=== PATIENT | male | born 1970 | race Two or more races ===

== ENCOUNTER 2025-01-29 17:17 | Inpatient (IN) | payer OTHER ==
[~2025-01-29] VITALS: Ht 182.9 cm; Wt 83.9 kg
[2025-01-29] MEDS ORDERED: NEURONTIN800 MG (17:35)
[2025-01-29] MEDS ORDERED: JANUMET 50-1,01 EACH (17:35)
[2025-01-29] MEDS ORDERED: 0.9 % SODIUM CHLORIDE 1,000 ML IV SCH ×2 (18:15→20:00)
[2025-01-29 18:47] LABS: LYMPH # 1.14 (1.18-3.74); LYMPH % 59.1 % (19.3-53.1); MEAN CORPUSCULAR HEMOGLOBIN 36.4 pg (25.6-32.2); MONO # 0.68 (0.24-0.82); NEUT # 0.08 (1.56-6.13); NEUT % 4.1 % (34.0-71.1); RED BLOOD COUNT 2.25 M/uL (4.63-6.08); RED CELL DISTRIBUTION WIDTH 15.8 % (11.6-14.4)
[2025-01-29 18:57] LABS: HEMATOCRIT 23.2 % (40.1-51.0); HEMOGLOBIN 8.2 g/dL (13.7-17.5); INR 1.1; MONO % 35.2 % (4.7-12.5); PARTIAL THROMBOPLASTIN TIME 30.4 SECONDS (22.0-34.0); PLATELET COUNT 22 K/uL (163-369); PROTHROMBIN TIME 11.9 SECONDS (9.0-11.5)
[2025-01-29 19:01] LABS: ALBUMIN 2.5 gm/dL (3.4-5.0); BILIRUBIN TOTAL 1.4 mg/dL (0.3-1.2); CALCIUM 8.4 mg/dL (8.5-10.1); CREATININE SERUM 0.73 mg/dL (0.70-1.30); GFR 112.83; GLOBULINA 4.2 G/DL (2.4-3.5); TOTAL PROTEIN 6.7 gm/dL (6.4-8.2)
[2025-01-29 19:04] LABS: POTASSIUM 2.66 mEq/L (3.5-5.1)
[2025-01-29 19:11] LABS: COVID-19 AG NEGATIVE (NEGATIVE)
[2025-01-29 19:12] LABS: INFLUENZA A AG NEGATIVE (NEGATIVE); INFLUENZA B AG NEGATIVE (NEGATIVE)
[2025-01-29] MEDS ORDERED: POTASSIUM CHLORIDE IN 0.9%NACL 1,000 ML IV NR (19:15)
[2025-01-29] MEDS ORDERED: PANTOPRAZOLE SODIUM 40 MG/VIAL VIAL IV SCH (20:02)
[2025-01-29] MEDS ORDERED: CEFEPIME HCL 1,000 MG in 0.9 % SODIUM CHLORIDE 50 ML IV ONE (20:15)
[2025-01-29] MEDS ORDERED: ONDANSETRON HCL 4 MG in 0.9 % SODIUM CHLORIDE 50 ML IV PRN (20:15)
[2025-01-29] MEDS ORDERED: INSULIN LISPRO 1,000 UNIT/10 ML UNITS SUBCUTANEO PRN (20:15)
[2025-01-29] MEDS ORDERED: ACETAMINOPHEN 500 MG GEL..CAP PO PRN (20:15)
[2025-01-29] MEDS ORDERED: DEXTROSE 50 % IN WATER 0.5 G/ML VIAL IV PRN (20:15)
[2025-01-29] MEDS ORDERED: POTASSIUM CHLORIDE IN WATER 100 ML IV SCH (21:00)
[2025-01-29] MEDS ORDERED: CEFEPIME HCL 1,000 MG in 0.9 % SODIUM CHLORIDE 50 ML IV SCH (21:00)
[2025-01-30] MEDS ORDERED: CEFEPIME HCL 2,000 MG in 0.9 % SODIUM CHLORIDE 100 ML IV SCH (01:00)
[2025-01-30 03:46] VITALS: BP 114/62; O2SAT 98
[2025-01-30 03:50] VITALS: BP 116/71; O2SAT 100
[2025-01-30 04:03] LABS: PH,URINE 7.5 (5.0-8.0); URINE APPEARANCE Clear; URINE BILIRRUBIN Negative (NEGATIVE); URINE BLOOD Negative; URINE COLOR Yellow; URINE KETONE 15 (NEGATIVE); URINE LEUKOCYTE Negative; URINE NITRATE Negative; URINE PROTEIN Negative (NEGATIVE)
[2025-01-30 04:06] LABS: URINE BACTERIA 6.1 uL (0.0-1933); URINE EPITHELIAL CELLS 2.1 uL (0.0-38.8)
[2025-01-30 04:16] LABS: MAGNESIUM 1.8 mg/dL (1.8-2.4)
[2025-01-30 04:57] LABS: C-REACTIVE PROTEIN 9.87 MG/DL (0.00-0.29)
[2025-01-30 04:58] LABS: PHOSPHOROUS 1.5 mg/dL (2.5-4.9)
[2025-01-30 06:20] LABS: URINE GLUCOSE >=1000 MG/DL (NEGATIVE); URINE WBC 0.6 uL (0.0-23.2)
[2025-01-30 09:02] VITALS: BP 105/64; O2SAT 97
[2025-01-30] MEDS ORDERED: INSULIN GLARGINE,HUM.REC.ANLOG 1,000 UNITS/10 ML UNITS SUBCUTANEO STA (12:00)
[2025-01-30] MEDS ORDERED: POTASSIUM PHOS,M-BASIC-D-BASIC 18 MM in 0.9 % SODIUM CHLORIDE 250 ML IV NR (12:00)
[2025-01-30] MEDS ORDERED: VANCOMYCIN HCL 5 MG/ML REDILUIDO IV STA (12:41)
[2025-01-30] MEDS ORDERED: DEXTROSE 50 % IN WATER 0.5 G/ML VIAL IV PRN (12:45)
[2025-01-30] MEDS ORDERED: INSULIN LISPRO 1,000 UNIT/10 ML UNITS SUBCUTANEO PRN (12:45)
[2025-01-30 14:00] VITALS: BP 105/70; O2SAT 100
[2025-01-30] MEDS ORDERED: POTASSIUM CHLORIDE IN WATER 100 ML IV SCH (17:00)
[2025-01-30] MEDS ORDERED: LACTOBACILLUS ACIDOPHILUS 1 CAP CAP PO SCH (17:00)
[2025-01-31 00:32] VITALS: BP 115/68; O2SAT 98
[2025-01-31] MEDS ORDERED: VANCOMYCIN HCL 5 MG/ML REDILUIDO IV SCH (05:00)
[2025-01-31 08:00] VITALS: BP 103/66; O2SAT 95
[2025-01-31] MEDS ORDERED: INSULIN GLARGINE,HUM.REC.ANLOG 1,000 UNITS/10 ML UNITS SUBCUTANEO SCH (09:00)
[2025-01-31 16:38] VITALS: BP 110/62; O2SAT 99
[2025-01-31 20:07] LABS: BASO % 0.6 % (0.1-1.2); EOS # 0.02 (0.04-0.54); EOS % 0.6 % (0.7-7.0); LYMPH % 44.2 % (19.3-53.1); MEAN CORPUSCULAR HEMOGLOBIN 36.1 pg (25.6-32.2); MONO # 0.67 (0.24-0.82); NEUT # 0.83 (1.56-6.13); NEUT % 26.2 % (34.0-71.1); RED BLOOD COUNT 2.38 M/uL (4.63-6.08); RED CELL DISTRIBUTION WIDTH 17.5 % (11.6-14.4)
[2025-01-31 20:41] LABS: HEMATOCRIT 24.6 % (40.1-51.0); HEMOGLOBIN 8.6 g/dL (13.7-17.5); MONO % 21.1 % (4.7-12.5); PLATELET COUNT 52 K/uL (163-369)
[2025-02-01 00:35] VITALS: BP 102/66; O2SAT 99
[2025-02-01 08:00] VITALS: BP 112/70; O2SAT 99
[2025-02-01] MEDS ORDERED: INSULIN LISPRO 1,000 UNIT/10 ML UNITS SUBCUTANEO SCH (08:00)
[2025-02-01] MEDS ORDERED: INSULIN GLARGINE,HUM.REC.ANLOG 1,000 UNITS/10 ML UNITS SUBCUTANEO SCH (09:00)
[2025-02-01 16:06] VITALS: BP 99/65; O2SAT 97
[2025-02-01] MEDS ORDERED: SOD FERRIC GLUC COMPLX/SUCROSE 62.5 MG/5 ML AMPUL IV STA (18:22)
[2025-02-02 00:51] VITALS: BP 107/66; O2SAT 97
[2025-02-02 08:00] VITALS: BP 106/68; O2SAT 95
[2025-02-02] MEDS ORDERED: SOD FERRIC GLUC COMPLX/SUCROSE 62.5 MG/5 ML AMPUL IV SCH (09:00)
[2025-02-02] MEDS ORDERED: AMOX-CLAV 875-1 EAC1 PO (16:52)
[2025-02-02] MEDS ORDERED: INTEGRA PLUS C1 EACH PO (16:52)
[2025-02-02] MEDS ORDERED: INTESTINEX680 M1 PO (16:52)
[2025-02-02] MEDS ORDERED: VANCOMYCIN HCL 5 MG/ML REDILUIDO IV SCH (17:00)
[2025-02-02 17:14] VITALS: BP 113/71; O2SAT 95
== END 2025-02-02 18:05 | disposition home or self-care (01) | DRG 809 ==
LOC: ER 17:17 → SURH 22:07 → MEDJ 22:07 → SEC-K 22:11 → SURH 23:18
PROVIDERS: General Practice; ADMIT Internal Medicine; ATTEND Internal Medicine
PROC: 30233R1 Transfusion of Nonautologous Platelets into Peripheral Vein, Percutaneous Approach (ICD-10-PCS; principal; 2025-01-30)
PROC: 30233N1 Transfusion of Nonautologous Red Blood Cells into Peripheral Vein, Percutaneous Approach (ICD-10-PCS; 2025-01-30)
DX: D61.818 Other pancytopenia (principal); C25.9 Malignant neoplasm of pancreas, unspecified; C78.7 Secondary malignant neoplasm of liver and intrahepatic bile duct; D69.6 Thrombocytopenia, unspecified; D70.8 Other neutropenia; R50.81 Fever presenting with conditions classified elsewhere; E11.9 Type 2 diabetes mellitus without complications; Z79.4 Long term (current) use of insulin

== ENCOUNTER 2025-03-15 10:39 | Emergency (ER) | payer OTHER ==
[~2025-03-15] VITALS: Ht 182.9 cm; Wt 84.8 kg
[~2025-03-15 10:39] MED LIST: AMOX-CLAV 875-1 EAC1 PO; INTEGRA PLUS C1 EACH PO; INTESTINEX680 M1 PO; JANUMET 50-1,01 EACH; NEURONTIN800 MG
[2025-03-15] MEDS ORDERED: LANTUS SOL100 UNIT/1 SQ (11:20)
[2025-03-15] MEDS ORDERED: ZOFRAN8 MG PO (11:21)
[2025-03-15] MEDS ORDERED: PEPCID AC10 MG (11:21)
[2025-03-15] MEDS ORDERED: 0.9 % SODIUM CHLORIDE 1,000 ML IV SCH (11:45)
[2025-03-15 12:23] LABS: BASO % 0.3 % (0.1-1.2); EOS # 0.23 (0.04-0.54); EOS % 6.7 % (0.7-7.0); LYMPH # 0.71 (1.18-3.74); LYMPH % 20.8 % (19.3-53.1); MEAN PLATELET VOLUME 11.60 fl (9.4-12.4); MONO # 0.24 (0.24-0.82); MONO % 7.0 % (4.7-12.5); NEUT # 2.20 (1.56-6.13); NEUT % 64.3 % (34.0-71.1); RED CELL DISTRIBUTION WIDTH 12.9 % (11.6-14.4)
[2025-03-15 12:39] LABS: ALT/SGPT 50.0 U/L (12-78); AST/SGOT 28.0 U/L (15-37); BILIRUBIN TOTAL 1.85 mg/dL (0.3-1.2); BUN CREA RATIO 16.0 (7.0-25.0); CREATININE SERUM 0.88 mg/dL (0.70-1.30); GFR 90.94; GLOBULINA 4.8 G/DL (2.4-3.5); OSMOLALITY SERUM 282.0 MOSM/KG (275-295)
[2025-03-15 12:41] LABS: COVID-19 AG NEGATIVE (NEGATIVE); GLUCOSE FASTING 308.0 mg/dL (65-100)
[2025-03-15 13:22] LABS: URINE APPEARANCE Clear; URINE BILIRRUBIN Small (NEGATIVE); URINE BLOOD Negative; URINE COLOR Dark Yellow; URINE KETONE Trace (NEGATIVE); URINE LEUKOCYTE Negative; URINE NITRATE Negative; URINE PROTEIN 30 (NEGATIVE); URINE UROBILINOGEN 2.0 E.U./dl
[2025-03-15 13:26] LABS: URINE BACTERIA 68.3 uL (0.0-1933); URINE EPITHELIAL CELLS 6.9 uL (0.0-38.8); URINE WBC 3.6 uL (0.0-23.2)
[2025-03-15 13:53] LABS: URINE CAST 0.00 uL (0.0-1.40); URINE GLUCOSE 500 MG/DL (NEGATIVE); URINE RBC 0.8 uL (0.0-20.8)
== END 2025-03-15 16:26 | disposition home or self-care (01) ==
LOC: ER 10:52
PROVIDERS: Emergency Medicine
DX: C25.9 Malignant neoplasm of pancreas, unspecified (principal); R10.9 Unspecified abdominal pain; Z20.822 Contact with and (suspected) exposure to COVID-19; E11.9 Type 2 diabetes mellitus without complications; Z79.4 Long term (current) use of insulin

== ENCOUNTER 2025-04-02 21:48 | Inpatient (IN) | payer OTHER ==
[~2025-04-02] VITALS: Ht 180.3 cm; Wt 83.5 kg
[~2025-04-02 21:48] MED LIST changes: +LANTUS SOL100 UNIT/1 SQ; +PEPCID AC10 MG; +ZOFRAN8 MG PO
[2025-04-02] MEDS ORDERED: PERCOCET 10-321 EACH (22:04)
[2025-04-02] MEDS ORDERED: NEURONTIN800 MG PO (22:04)
[2025-04-02] MEDS ORDERED: PANTOPRAZOLE SODIUM 40 MG in 0.9 % SODIUM CHLORIDE 8 ML IV PUSH STA (22:18)
[2025-04-02] MEDS ORDERED: 0.9 % SODIUM CHLORIDE 1,000 ML IV SCH ×2 (22:30→23:45)
[2025-04-02] MEDS ORDERED: ONDANSETRON HCL 2 MG/ML VIAL IV ONE (22:30)
[2025-04-02 23:11] LABS: BASO % 0.6 % (0.1-1.2); EOS # 0.02 (0.04-0.54); EOS % 1.1 % (0.7-7.0); LYMPH # 0.78 (1.18-3.74); LYMPH % 44.8 % (19.3-53.1); MEAN PLATELET VOLUME 12.90 fl (9.4-12.4); MONO # 0.10 (0.24-0.82); MONO % 5.7 % (4.7-12.5); NEUT # 0.81 (1.56-6.13); NEUT % 46.7 % (34.0-71.1); RED CELL DISTRIBUTION WIDTH 12.8 % (11.6-14.4)
[2025-04-02 23:29] LABS: INR 1.13
[2025-04-02 23:33] LABS: ALT/SGPT 60.0 U/L (12-78); AST/SGOT 41.0 U/L (15-37); BILIRUBIN TOTAL 0.96 mg/dL (0.3-1.2); BILIRUBIN,CONJUGATED 0.57 mg/dL (0.0-0.2); BUN CREA RATIO 18.0 (7.0-25.0); CREATININE SERUM 0.65 mg/dL (0.70-1.30); GFR 129.0; GLOBULINA 4.6 G/DL (2.4-3.5); GLUCOSE FASTING 199.0 mg/dL (65-100); OSMOLALITY SERUM 283.0 MOSM/KG (275-295)
[2025-04-02] MEDS ORDERED: OCTREOTIDE ACETATE 0.05MG/ML (50MCG/ML) AMPUL IV ONE (23:45)
[2025-04-02] MEDS ORDERED: ACETAMINOPHEN 500 MG GEL..CAP PO PRN (23:45)
[2025-04-02] MEDS ORDERED: ONDANSETRON HCL 4 MG in 0.9 % SODIUM CHLORIDE 50 ML IV PRN (23:45)
[2025-04-02] MEDS ORDERED: MORPHINE SULFATE 4 MG/ML VIAL IV PRN (23:45)
[2025-04-03] MEDS ORDERED: MORPHINE SULFATE 4 MG/ML CARTRIDGE IV ONE (00:15)
[2025-04-03] MEDS ORDERED: MORPHINE SULFATE 4 MG/ML CARTRIDGE IV PRN (00:15)
[2025-04-03] MEDS ORDERED: CEFEPIME HCL 2,000 MG in 0.9 % SODIUM CHLORIDE 100 ML IV SCH (01:00)
[2025-04-03] MEDS ORDERED: OCTREOTIDE ACETATE 1,250 MCG in 0.9 % SODIUM CHLORIDE 250 ML IV SCH (02:00)
[2025-04-03 03:12] VITALS: BP 121/72; O2SAT 99
[2025-04-03 06:55] VITALS: O2SAT 97
[2025-04-03 09:09] VITALS: BP 119/66; O2SAT 98
[2025-04-03 10:33] LABS: URINE APPEARANCE Clear; URINE BILIRRUBIN Negative (NEGATIVE); URINE BLOOD Negative; URINE COLOR Yellow; URINE GLUCOSE Negative (NEGATIVE); URINE KETONE Negative (NEGATIVE); URINE LEUKOCYTE Negative; URINE NITRATE Negative; URINE PROTEIN Negative (NEGATIVE); URINE UROBILINOGEN 1.0 E.U./dl
[2025-04-03 10:38] LABS: URINE BACTERIA 7.1 uL (0.0-1933); URINE EPITHELIAL CELLS 3.8 uL (0.0-38.8); URINE RBC 21.7 uL (0.0-20.8); URINE WBC 8.3 uL (0.0-23.2)
[2025-04-03 10:56] LABS: ob POSITIVE (NEGATIVE)
[2025-04-03 10:57] LABS: URINE CAST 0.14 uL (0.0-1.40); URINE CRYSTALS MANY /HPF
[2025-04-03 17:57] VITALS: BP 102/62; O2SAT 98
[2025-04-03] MEDS ORDERED: PANTOPRAZOLE SODIUM 80 MG in 0.9 % SODIUM CHLORIDE 100 ML IV SCH (23:45)
[2025-04-04 00:41] LABS: BASO % 0.6 % (0.1-1.2); EOS # 0.04 (0.04-0.54); EOS % 2.3 % (0.7-7.0); LYMPH # 0.93 (1.18-3.74); LYMPH % 52.8 % (19.3-53.1); MEAN PLATELET VOLUME 11.30 fl (9.4-12.4); MONO # 0.22 (0.24-0.82); NEUT # 0.55 (1.56-6.13); NEUT % 31.2 % (34.0-71.1); RED CELL DISTRIBUTION WIDTH 13.6 % (11.6-14.4)
[2025-04-04 00:56] LABS: MONO % 12.5 % (4.7-12.5)
[2025-04-04 01:00] VITALS: BP 117/71; O2SAT 98
[2025-04-04 08:51] VITALS: BP 109/68; O2SAT 98
[2025-04-04] MEDS ORDERED: FILGRASTIM-AAFI 300 MCG/0.5 ML SYRINGE SUBCUTANEO SCH (17:00)
[2025-04-04 17:57] VITALS: BP 114/72; O2SAT 100
[2025-04-04 22:17] LABS: BASO % 0.8 % (0.1-1.2); EOS # 0.09 (0.04-0.54); EOS % 3.7 % (0.7-7.0); LYMPH # 0.97 (1.18-3.74); LYMPH % 39.8 % (19.3-53.1); MEAN PLATELET VOLUME 12.90 fl (9.4-12.4); MONO # 0.48 (0.24-0.82); NEUT # 0.87 (1.56-6.13); NEUT % 35.6 % (34.0-71.1); RED CELL DISTRIBUTION WIDTH 15.6 % (11.6-14.4)
[2025-04-04 22:31] LABS: ALT/SGPT 29.0 U/L (12-78); AST/SGOT 12.0 U/L (15-37); BILIRUBIN TOTAL 2.13 mg/dL (0.3-1.2); BUN CREA RATIO 14.0 (7.0-25.0); CREATININE SERUM 0.51 mg/dL (0.70-1.30); GFR 170.66; GLOBULINA 3.8 G/DL (2.4-3.5); GLUCOSE FASTING 113.0 mg/dL (65-100); OSMOLALITY SERUM 278.0 MOSM/KG (275-295)
[2025-04-05 00:51] LABS: BLAST MAN 1.0 %; EOSINOPHIL MAN 1.0 %; LYMPHOCYTE MAN 63.0 %; MONO % 19.7 % (4.7-12.5); MONOCYTE MAN 14.0 %; NEUTROPHILS MAN 21.0 %
[2025-04-05 02:06] VITALS: BP 117/70; O2SAT 98
[2025-04-05 09:36] VITALS: BP 107/68; O2SAT 100
[2025-04-05 18:09] VITALS: BP 118/68; O2SAT 100
[2025-04-05] MEDS ORDERED: MORPHINE SULFATE 4 MG/ML CARTRIDGE IV PRN (21:00)
[2025-04-06 00:56] VITALS: BP 99/56; O2SAT 98
[2025-04-06 05:51] LABS: BASO % 0.6 % (0.1-1.2); EOS # 0.12 (0.04-0.54); EOS % 3.4 % (0.7-7.0); LYMPH # 1.07 (1.18-3.74); LYMPH % 30.5 % (19.3-53.1); MEAN PLATELET VOLUME 13.80 fl (9.4-12.4); MONO # 0.76 (0.24-0.82); NEUT # 1.40 (1.56-6.13); NEUT % 39.8 % (34.0-71.1); RED CELL DISTRIBUTION WIDTH 15.1 % (11.6-14.4)
[2025-04-06 07:00] LABS: ALT/SGPT 22.0 U/L (12-78); AST/SGOT 10.0 U/L (15-37); BILIRUBIN TOTAL 2.07 mg/dL (0.3-1.2); BUN CREA RATIO 16.0 (7.0-25.0); CREATININE SERUM 0.45 mg/dL (0.70-1.30); GFR 197.19; GLOBULINA 3.5 G/DL (2.4-3.5); GLUCOSE FASTING 122.0 mg/dL (65-100); OSMOLALITY SERUM 277.0 MOSM/KG (275-295)
[2025-04-06 08:00] VITALS: BP 95/58; O2SAT 99
[2025-04-06 08:45] LABS: BAND MAN 3.0 %; EOSINOPHIL MAN 5.0 %; LYMPHOCYTE MAN 33.0 %; MONO % 21.7 % (4.7-12.5); MONOCYTE MAN 15.0 %; NEUTROPHILS MAN 37.0 %
[2025-04-06 14:05] LABS: BASO % 0.3 % (0.1-1.2); EOS # 0.09 (0.04-0.54); EOS % 2.5 % (0.7-7.0); LYMPH # 0.94 (1.18-3.74); LYMPH % 26.3 % (19.3-53.1); MEAN PLATELET VOLUME 12.60 fl (9.4-12.4); MONO # 0.79 (0.24-0.82); NEUT # 1.51 (1.56-6.13); NEUT % 42.1 % (34.0-71.1); RED CELL DISTRIBUTION WIDTH 15.3 % (11.6-14.4)
[2025-04-06 15:53] LABS: BAND MAN 2.0 %; EOSINOPHIL MAN 3.0 %; LYMPHOCYTE MAN 26.0 %; METAMYELOCYTE 2.0 %; MONO % 22.1 % (4.7-12.5); MONOCYTE MAN 15.0 %; MYELOCYTE 1.0 %; NEUTROPHILS MAN 49.0 %
[2025-04-06 18:11] VITALS: BP 111/68; O2SAT 98
[2025-04-07 00:46] VITALS: BP 111/68; O2SAT 99
[2025-04-07 08:12] VITALS: BP 101/59; O2SAT 97
[2025-04-07] MEDS ORDERED: INSULIN LISPRO 1,000 UNIT/10 ML UNITS SUBCUTANEO PRN (17:30)
[2025-04-07] MEDS ORDERED: DEXTROSE 50 % IN WATER 0.5 G/ML VIAL IV PRN (17:30)
[2025-04-07] MEDS ORDERED: INSULIN LISPRO 1,000 UNIT/10 ML UNITS SUBCUTANEO ONE (17:59)
[2025-04-07 18:25] VITALS: BP 110/70; O2SAT 100
[2025-04-07] MEDS ORDERED: PANTOPRAZOLE SODIUM 40 MG/VIAL VIAL IV PUSH SCH (21:00)
[2025-04-08 00:50] VITALS: BP 122/75; O2SAT 99
[2025-04-08 07:19] LABS: BASO % 1.1 % (0.1-1.2); EOS # 0.08 (0.04-0.54); EOS % 1.4 % (0.7-7.0); LYMPH # 0.99 (1.18-3.74); LYMPH % 17.9 % (19.3-53.1); MEAN PLATELET VOLUME 12.70 fl (9.4-12.4); MONO # 1.11 (0.24-0.82); NEUT # 2.69 (1.56-6.13); NEUT % 48.6 % (34.0-71.1); RED CELL DISTRIBUTION WIDTH 15.7 % (11.6-14.4)
[2025-04-08 07:24] LABS: MONO % 20.0 % (4.7-12.5)
[2025-04-08] MEDS ORDERED: LACTOBACILLUS ACIDOPHILUS 1 CAP CAP PO SCH (10:21)
[2025-04-08] MEDS ORDERED: BISMUTH SUBSALICYLATE 524 MG/30 ML BLIST.PACK PO PRN (10:30)
[2025-04-08 11:11] VITALS: BP 91/51; O2SAT 94
[2025-04-08] MEDS ORDERED: CEFEPIME HCL 2,000 MG VIAL ONE (15:43)
[2025-04-08 16:46] VITALS: BP 100/63; O2SAT 98
[2025-04-09 00:36] VITALS: BP 106/65; O2SAT 99
[2025-04-09 08:18] VITALS: BP 98/62
== END 2025-04-09 11:43 | disposition home or self-care (01) | DRG 436 ==
LOC: ER 21:48 → MEDJ 04-03 00:01
PROVIDERS: General Practice; Internal Medicine; ADMIT Internal Medicine; ATTEND Internal Medicine
PROC: 30233R1 Transfusion of Nonautologous Platelets into Peripheral Vein, Percutaneous Approach (ICD-10-PCS; principal; 2025-04-03)
PROC: B54DZZZ Ultrasonography of Bilateral Lower Extremity Veins (ICD-10-PCS; 2025-04-03)
PROC: 4A12X4Z Monitoring of Cardiac Electrical Activity, External Approach (ICD-10-PCS; 2025-04-03)
PROC: BW21YZZ Computerized Tomography (CT Scan) of Abdomen and Pelvis using Other Contrast (ICD-10-PCS; 2025-04-03)
PROC: B54PZZZ Ultrasonography of Bilateral Upper Extremity Veins (ICD-10-PCS; 2025-04-05)
DX: C25.4 Malignant neoplasm of endocrine pancreas (principal); C78.7 Secondary malignant neoplasm of liver and intrahepatic bile duct; D61.818 Other pancytopenia; K92.2 Gastrointestinal hemorrhage, unspecified; D63.0 Anemia in neoplastic disease; G62.9 Polyneuropathy, unspecified; D69.6 Thrombocytopenia, unspecified; D70.9 Neutropenia, unspecified; R50.81 Fever presenting with conditions classified elsewhere

== ENCOUNTER 2025-05-07 17:36 | Inpatient (IN) | payer OTHER ==
[~2025-05-07] VITALS: Ht 175.3 cm; Wt 72.6 kg
[~2025-05-07 17:36] MED LIST changes: +NEURONTIN800 MG PO; +PERCOCET 10-321 EACH
--- NOTE | 2025-05-07 18:00 | NUR ---
PTE ALERTA Y ORIENTADO X 3 ESFERAS QUIEN REFIERE SER ENVIADO POR ONCOLOGO POR BILIRJOCELYNNNIA.PTE CON CX DE CA HIGAD/PANCREAS,AL MOMENTO REFIERE DOLOR MANEJABLE.
[2025-05-07] MEDS ORDERED: PIPERACILLIN/TAZOBACTAM SODIUM 3.375 GM VIAL IV ONE ×2 (19:00→19:01)
[2025-05-07] MEDS ORDERED: FAMOtidine 10 MG/ML (4ML VIAL) IV ONE (19:00)
[2025-05-07] MEDS ORDERED: MORPHINE SULFATE 4 MG/ML CARTRIDGE IV ONE (19:00)
[2025-05-07] MEDS ORDERED: FAMOTIDINE/PF 20 MG/2 ML VIAL ONE (19:01)
--- NOTE | 2025-05-07 19:10 | NUR ---
SE ORIENTA A PACIENTE SOBRE TRATAMIENTO MEDICO, REFIERE ENTENDER. SE REALIZAN MUESTRAS DE LABORATORIO BAJO MEDIDAS ASEPTICAS. SE ADMINISTRAN MEDICAMENTOS JESSE ORDEN MEDICA. SE COORDINA SONOGRAMA. PACIENTE MANEJADO POR . PENDIENTE RE-EVALUACION MEDICA.
[2025-05-07] MEDS ORDERED: 0.9 % SODIUM CHLORIDE 1,000 ML IV ONE (19:15)
[2025-05-07 19:32] LABS: BASO % 0.2 % (0.1-1.2); EOS # 0.58 (0.04-0.54); EOS % 6.6 % (0.7-7.0); LYMPH # 1.22 (1.18-3.74); LYMPH % 13.8 % (19.3-53.1); MEAN PLATELET VOLUME 10.40 fl (9.4-12.4); MONO # 1.08 (0.24-0.82); NEUT # 5.88 (1.56-6.13); NEUT % 66.8 % (34.0-71.1); RED CELL DISTRIBUTION WIDTH 19.0 % (11.6-14.4)
[2025-05-07 19:34] LABS: MONO % 12.3 % (4.7-12.5)
[2025-05-07 19:56] LABS: INR 1.19
[2025-05-07 20:03] LABS: ALT/SGPT 66.0 U/L (12-78); AST/SGOT 32.0 U/L (15-37); BILIRUBIN TOTAL 2.49 mg/dL (0.3-1.2); BILIRUBIN,CONJUGATED 1.79 mg/dL (0.0-0.2); BUN CREA RATIO 14.0 (7.0-25.0); CREATININE SERUM 0.65 mg/dL (0.70-1.30); GFR 129.0; GLOBULINA 5.5 G/DL (2.4-3.5); GLUCOSE FASTING 195.0 mg/dL (65-100); OSMOLALITY SERUM 282.0 MOSM/KG (275-295)
[2025-05-07 21:03] LABS: URINE APPEARANCE Clear; URINE BILIRRUBIN Moderate (NEGATIVE); URINE BLOOD Negative; URINE COLOR Dark Yellow; URINE KETONE Trace (NEGATIVE); URINE LEUKOCYTE Trace; URINE NITRATE Negative; URINE PROTEIN 30 (NEGATIVE); URINE UROBILINOGEN 1.0 E.U./dl
[2025-05-07 21:04] LABS: URINE BACTERIA 13.1 uL (0.0-1933); URINE EPITHELIAL CELLS 6.4 uL (0.0-38.8); URINE RBC 2.1 uL (0.0-20.8); URINE WBC 2.3 uL (0.0-23.2)
[2025-05-07 21:05] LABS: URINE GLUCOSE 100 MG/DL (NEGATIVE)
[2025-05-07 21:06] LABS: URINE CAST 0.14 uL (0.0-1.40)
[2025-05-07] MEDS ORDERED: 0.9 % SODIUM CHLORIDE 1,000 ML IV SCH (23:30)
[2025-05-07] MEDS ORDERED: CEFTRIAXONE SODIUM 2,000 MG in 0.9 % SODIUM CHLORIDE 100 ML IV SCH (23:35)
[2025-05-07] MEDS ORDERED: FAMOTIDINE/PF 20 MG in 0.9 % SODIUM CHLORIDE 8 ML IV PUSH SCH (23:36)
[2025-05-07] MEDS ORDERED: DEXTROSE 50 % IN WATER 0.5 G/ML DISP.SYRIN IV PRN (23:45)
[2025-05-07] MEDS ORDERED: ACETAMINOPHEN 500 MG GEL..CAP PO PRN (23:45)
[2025-05-07] MEDS ORDERED: INSULIN LISPRO 1,000 UNIT/10 ML UNITS SUBCUTANEO PRN (23:45)
[2025-05-07] MEDS ORDERED: ONDANSETRON HCL 4 MG in 0.9 % SODIUM CHLORIDE 50 ML IV PRN (23:45)
[2025-05-08 06:30] VITALS: BP 94/58; O2SAT 97
[2025-05-08] MEDS ORDERED: MORPHINE SULFATE 4 MG/ML CARTRIDGE IV PRN (07:15)
[2025-05-08 08:52] VITALS: BP 95/60; O2SAT 99
[2025-05-08 16:00] VITALS: BP 128/73; O2SAT 100
[2025-05-09 00:40] VITALS: BP 101/64; O2SAT 97
[2025-05-09 04:10] LABS: BASO % 0.5 % (0.1-1.2); EOS # 0.67 (0.04-0.54); EOS % 6.7 % (0.7-7.0); LYMPH # 1.39 (1.18-3.74); LYMPH % 14.0 % (19.3-53.1); MEAN PLATELET VOLUME 10.70 fl (9.4-12.4); MONO # 1.17 (0.24-0.82); MONO % 11.7 % (4.7-12.5); NEUT # 6.65 (1.56-6.13); NEUT % 66.8 % (34.0-71.1); RED CELL DISTRIBUTION WIDTH 19.1 % (11.6-14.4)
[2025-05-09 08:00] VITALS: BP 106/69; O2SAT 98
[2025-05-09 17:38] VITALS: BP 106/67; O2SAT 97
[2025-05-10 01:19] VITALS: BP 109/62; O2SAT 97
[2025-05-10 10:58] VITALS: BP 96/59; O2SAT 98
[2025-05-10] MEDS ORDERED: MORPHINE SULFATE 4 MG/ML CARTRIDGE IV PRN (11:15)
== END 2025-05-10 15:38 | disposition home or self-care (01) | DRG 442 ==
LOC: ER 17:36 → SURH 23:37
PROVIDERS: General Practice; ADMIT Internal Medicine; ATTEND Internal Medicine
PROC: BW40ZZZ Ultrasonography of Abdomen (ICD-10-PCS; principal; 2025-05-07)
PROC: BF37ZZZ Magnetic Resonance Imaging (MRI) of Pancreas (ICD-10-PCS; 2025-05-08)
PROC: 30233N1 Transfusion of Nonautologous Red Blood Cells into Peripheral Vein, Percutaneous Approach (ICD-10-PCS; 2025-05-08)
PROC: 8E0ZXY6 Isolation (ICD-10-PCS; 2025-05-08)
DX: E80.6 Other disorders of bilirubin metabolism (principal); C25.4 Malignant neoplasm of endocrine pancreas; C78.7 Secondary malignant neoplasm of liver and intrahepatic bile duct; R50.81 Fever presenting with conditions classified elsewhere; D63.0 Anemia in neoplastic disease; D69.6 Thrombocytopenia, unspecified

== ENCOUNTER 2025-06-04 09:22 | Inpatient (IN) | payer OTHER ==
[~2025-06-04] VITALS: Ht 175.3 cm; Wt 77.1 kg
--- NOTE | 2025-06-04 09:51 | NUR ---
PACIENTE ALERTA Y ORIENTADO X 3. EL MISMO PRESENTA REFERIDO DE DR Emerson MURILLO PARA EVALUACION POR ER, REFIERE PACIENTE DE CA PANCREAS E HIGADO.
[2025-06-04] MEDS ORDERED: LASIX20 MG (09:54)
[2025-06-04] MEDS ORDERED: FAMOTIDINE/PF 20 MG in 0.9 % SODIUM CHLORIDE 8 ML IV PUSH ONE (11:00)
[2025-06-04 11:45] LABS: BASO % 0.2 % (0.1-1.2); EOS # 0.11 (0.04-0.54); EOS % 2.7 % (0.7-7.0); LYMPH # 0.99 (1.18-3.74); LYMPH % 24.4 % (19.3-53.1); MEAN PLATELET VOLUME 12.10 fl (9.4-12.4); MONO # 0.57 (0.24-0.82); NEUT # 2.34 (1.56-6.13); NEUT % 57.9 % (34.0-71.1); RED CELL DISTRIBUTION WIDTH 18.0 % (11.6-14.4)
[2025-06-04 12:01] LABS: INR 1.19
[2025-06-04 12:06] LABS: ALT/SGPT 56.0 U/L (12-78); AST/SGOT 28.0 U/L (15-37); BILIRUBIN TOTAL 1.31 mg/dL (0.3-1.2); BUN CREA RATIO 24.0 (7.0-25.0); CREATININE SERUM 0.46 mg/dL (0.70-1.30); GFR 192.25; GLOBULINA 4.9 G/DL (2.4-3.5); GLUCOSE FASTING 162.0 mg/dL (65-100); OSMOLALITY SERUM 280.0 MOSM/KG (275-295)
[2025-06-04 12:13] LABS: URINE APPEARANCE Clear; URINE BILIRRUBIN Negative (NEGATIVE); URINE BLOOD Negative; URINE COLOR Dark Yellow; URINE GLUCOSE Negative (NEGATIVE); URINE KETONE Negative (NEGATIVE); URINE LEUKOCYTE Negative; URINE NITRATE Negative; URINE PROTEIN Negative (NEGATIVE); URINE UROBILINOGEN 1.0 E.U./dl
--- NOTE | 2025-06-04 12:17 | NUR ---
SE ORIENTA A PACIENTE SOBRE TX MEDICO EL MISMO VERBALIZA COMPRENDER INSTRUCCIONES OFRECIDAS , BAJO MEDIDAS ASEPTICAS SE KOURTNEY MUESTRAS DE MICHAEL . SE ADMINISTRAN MEDICAMENTOS JESSE ORDEN MEDICA . SE ENTREGA EMBASE DE MUESTRA U/A A PTE .
[2025-06-04 12:22] LABS: URINE BACTERIA 7.1 uL (0.0-1933); URINE EPITHELIAL CELLS 1.8 uL (0.0-38.8)
[2025-06-04 12:24] LABS: URINE CAST 0.14 uL (0.0-1.40); URINE RBC 1.4 uL (0.0-20.8); URINE WBC 0.4 uL (0.0-23.2)
[2025-06-04 12:45] LABS: MONO % 14.1 % (4.7-12.5)
--- NOTE | 2025-06-04 13:59 | NUR ---
SE ORIENTA A PACIENTE ALERTA Y ORIENTADO X3 SOBRE ORDEN DE TRANSFUSION PARA 2 UNIDADES DE PRBC Y 10 UNIDADES DE PLAQUETAS, EL MISMO REFIERE ENTENDER. SE CORROBORAN DATOS DEMOGRAFICOS DE PACIENTE. PACIENTE FIRMA CONSENTIMIENTO DE TRANSFUSION Y SE ADJUNTA EN RECORD. SE COLECTAN TUBOS ROCIO Y SE COMPLETA REQUISICION SANGUINEA. SE LLEVA REQUISICION A BANCO DE MICHAEL, MS LOPEZ SE COMUNICA CON SERVICIOS MUTUOS QUIENES REFIEREN PACIENTE POSEE RECORD VIGENTE.
[2025-06-04] MEDS ORDERED: PANTOPRAZOLE SODIUM 40 MG in 0.9 % SODIUM CHLORIDE 8 ML IV PUSH SCH (15:43)
[2025-06-04] MEDS ORDERED: MORPHINE SULFATE 2 MG/ML SYRINGE IV PRN (15:45)
[2025-06-04] MEDS ORDERED: INSULIN LISPRO 1,000 UNIT/10 ML UNITS SUBCUTANEO PRN (15:45)
[2025-06-04] MEDS ORDERED: DEXTROSE 50 % IN WATER 0.5 G/ML DISP.SYRIN IV PRN (15:45)
[2025-06-04] MEDS ORDERED: ONDANSETRON HCL 4 MG in 0.9 % SODIUM CHLORIDE 50 ML IV PRN (15:45)
[2025-06-04 21:00] VITALS: BP 118/71; O2SAT 100
[2025-06-04 21:01] VITALS: BP 111/67
[2025-06-05 03:27] VITALS: BP 104/68; O2SAT 100
[2025-06-05 08:30] VITALS: BP 99/64; O2SAT 99
[2025-06-05 17:15] VITALS: BP 111/72; O2SAT 100
[2025-06-05 23:30] LABS: BASO % 0.3 % (0.1-1.2); EOS # 0.21 (0.04-0.54); EOS % 3.6 % (0.7-7.0); LYMPH # 0.92 (1.18-3.74); LYMPH % 15.8 % (19.3-53.1); MEAN PLATELET VOLUME 12.20 fl (9.4-12.4); MONO # 1.02 (0.24-0.82); NEUT # 3.61 (1.56-6.13); NEUT % 62.2 % (34.0-71.1); RED CELL DISTRIBUTION WIDTH 20.4 % (11.6-14.4)
[2025-06-05 23:40] LABS: MONO % 17.6 % (4.7-12.5)
[2025-06-06 01:04] LABS: GLU PERITONEAL FLUID 121.0 mg/dl; LDH PERITONEAL FLUID 57.0 U/L; TP PERITONEAL FLUID 2.1 g/dl
[2025-06-06 01:57] LABS: BAND MAN 1.0 %; LYMPHOCYTE MAN 20.0 %; MONOCYTE MAN 15.0 %; NEUTROPHILS MAN 64.0 %
[2025-06-06 02:48] VITALS: BP 97/59; O2SAT 98
[2025-06-06 09:02] VITALS: BP 104/63; O2SAT 99
[2025-06-06 18:01] VITALS: BP 99/62
[2025-06-07 03:28] VITALS: BP 99/60; O2SAT 99
[2025-06-07] MEDS ORDERED: MORPHINE SULFATE 2 MG/ML SYRINGE IV PRN (09:45)
[2025-06-07 10:21] VITALS: BP 104/66; O2SAT 98
[2025-06-07] MEDS ORDERED: MORPHINE SULFATE 4 MG/ML VIAL IV PRN (14:32)
[2025-06-07 18:45] VITALS: BP 104/64; O2SAT 98
[2025-06-08 03:46] VITALS: BP 100/63; O2SAT 99
[2025-06-08 06:18] LABS: BASO % 0.3 % (0.1-1.2); EOS # 0.29 (0.04-0.54); EOS % 3.8 % (0.7-7.0); LYMPH # 1.12 (1.18-3.74); MEAN PLATELET VOLUME 12.10 fl (9.4-12.4); MONO # 0.95 (0.24-0.82); NEUT # 5.22 (1.56-6.13); NEUT % 68.3 % (34.0-71.1); RED CELL DISTRIBUTION WIDTH 19.1 % (11.6-14.4)
[2025-06-08 08:19] LABS: LYMPH % 14.7 % (19.3-53.1)
[2025-06-08 08:20] LABS: MONO % 12.4 % (4.7-12.5)
[2025-06-08 09:30] VITALS: BP 94/56; O2SAT 99
== END 2025-06-08 15:37 | disposition home or self-care (01) | DRG 809 ==
LOC: ER 09:23 → MEDJ 17:13 → SEC-K 17:13 → MEDJ 18:51
PROVIDERS: General Practice; Radiology Vascular & Interventional Radiology; Student in an Organized Health Care Education/Training Program; ADMIT Internal Medicine; ATTEND Internal Medicine
PROC: 8E0ZXY6 Isolation (ICD-10-PCS; principal; 2025-06-04)
PROC: BW21ZZZ Computerized Tomography (CT Scan) of Abdomen and Pelvis (ICD-10-PCS; 2025-06-04)
PROC: 4A12X4Z Monitoring of Cardiac Electrical Activity, External Approach (ICD-10-PCS; 2025-06-04)
PROC: 0W9G3ZZ Drainage of Peritoneal Cavity, Percutaneous Approach (ICD-10-PCS; 2025-06-05)
PROC: 30233N1 Transfusion of Nonautologous Red Blood Cells into Peripheral Vein, Percutaneous Approach (ICD-10-PCS; 2025-06-05)
PROC: 30233R1 Transfusion of Nonautologous Platelets into Peripheral Vein, Percutaneous Approach (ICD-10-PCS; 2025-06-05)
DX: D61.818 Other pancytopenia (principal); C25.7 Malignant neoplasm of other parts of pancreas; C78.7 Secondary malignant neoplasm of liver and intrahepatic bile duct; K92.0 Hematemesis; R18.8 Other ascites; E11.9 Type 2 diabetes mellitus without complications; Z79.4 Long term (current) use of insulin; D69.6 Thrombocytopenia, unspecified; D70.0 Congenital agranulocytosis; R50.81 Fever presenting with conditions classified elsewhere; Z15.01 Genetic susceptibility to malignant neoplasm of breast; E80.6 Other disorders of bilirubin metabolism

== ENCOUNTER 2025-06-12 10:41 | Inpatient (IN) | payer OTHER ==
[~2025-06-12] VITALS: Ht 172.7 cm; Wt 77.1 kg
[~2025-06-12 10:41] MED LIST changes: +LASIX20 MG
--- NOTE | 2025-06-12 11:13 | NUR ---
PACIENNTE EN COMPANIA DE FAMILIAR, LEGA A ER CON REFERIDO MEDICO PARA REALIZAR PROCEDIMIENTO DE DRENAJE ABDOMINAL. EL MISMO CON HX DE CANCER DE HIGADO Y PANCREAS CON METASTASIS. SE PRESENTA A DR. OLIVA Y SE UBICA EN K-1
--- NOTE | 2025-06-12 12:30 | NUR ---
SE EDUCA A PACIENTE SOBRE TRATAMIENTO MEDICO EL CUAL REFIERE ENTENDER, SE REALIZA MARQUITA DE MUESTRAS JESSE ORDEN MEDICA Y BAJO MEDIDAS ASEPTICAS.
[2025-06-12 12:40] LABS: BASO % 0.2 % (0.1-1.2); EOS # 0.33 (0.04-0.54); EOS % 3.6 % (0.7-7.0); LYMPH # 1.17 (1.18-3.74); LYMPH % 12.8 % (19.3-53.1); MEAN PLATELET VOLUME 10.90 fl (9.4-12.4); MONO # 1.22 (0.24-0.82); NEUT # 6.39 (1.56-6.13); NEUT % 69.8 % (34.0-71.1); RED CELL DISTRIBUTION WIDTH 18.0 % (11.6-14.4)
[2025-06-12 12:42] LABS: MONO % 13.3 % (4.7-12.5)
[2025-06-12 13:03] LABS: INR 1.15
[2025-06-12 13:05] LABS: BUN CREA RATIO 17.0 (7.0-25.0); CREATININE SERUM 0.76 mg/dL (0.70-1.30); GFR 107.7; GLUCOSE FASTING 156.0 mg/dL (65-100); OSMOLALITY SERUM 285.0 MOSM/KG (275-295)
[2025-06-12 13:32] LABS: URINE APPEARANCE Clear; URINE BILIRRUBIN Small (NEGATIVE); URINE BLOOD Negative; URINE COLOR Dark Yellow; URINE GLUCOSE Negative (NEGATIVE); URINE KETONE Trace (NEGATIVE); URINE LEUKOCYTE Trace; URINE NITRATE Negative; URINE PROTEIN Trace (NEGATIVE); URINE UROBILINOGEN 1.0 E.U./dl
[2025-06-12 13:36] LABS: URINE BACTERIA 7.2 uL (0.0-1933); URINE RBC 2.7 uL (0.0-20.8)
[2025-06-12 13:50] LABS: URINE CAST 0.00 uL (0.0-1.40); URINE CRYSTALS MODERATE /HPF; URINE EPITHELIAL CELLS 1.3 uL (0.0-38.8); URINE WBC 0.3 uL (0.0-23.2)
[2025-06-12] MEDS ORDERED: ONDANSETRON HCL 2 MG/ML VIAL IV STA (13:55)
[2025-06-12] MEDS ORDERED: FAMOTIDINE/PF 20 MG/2 ML VIAL IV STA (13:55)
[2025-06-12] MEDS ORDERED: MORPHINE SULFATE 2 MG/ML SYRINGE IV ONE (14:00)
[2025-06-12] MEDS ORDERED: ONDANSETRON HCL 2 MG/ML VIAL ONE (14:16)
[2025-06-12] MEDS ORDERED: FAMOTIDINE/PF 20 MG/2 ML VIAL ONE (14:17)
[2025-06-12] MEDS ORDERED: ACETAMINOPHEN 325 MG TABLET PO PRN (18:45)
[2025-06-12] MEDS ORDERED: MORPHINE SULFATE 4 MG/ML CARTRIDGE IV PRN (18:45)
[2025-06-12] MEDS ORDERED: ONDANSETRON HCL 4 MG in 0.9 % SODIUM CHLORIDE 50 ML IV PRN (18:45)
[2025-06-12] MEDS ORDERED: MORPHINE SULFATE 4 MG/ML CARTRIDGE IV SCH ×2 (19:00→21:00)
[2025-06-12 20:04] VITALS: BP 100/70
[2025-06-13 01:17] VITALS: BP 126/82; O2SAT 100
[2025-06-13 08:16] VITALS: BP 108/69; O2SAT 100
[2025-06-13] MEDS ORDERED: PANTOPRAZOLE SODIUM 40 MG/VIAL VIAL IV SCH (09:00)
[2025-06-13 15:00] VITALS: BP 113/71; O2SAT 97
[2025-06-13] MEDS ORDERED: INSULIN LISPRO 1,000 UNIT/10 ML UNITS SUBCUTANEO PRN (16:15)
[2025-06-13] MEDS ORDERED: DEXTROSE 50 % IN WATER 0.5 G/ML DISP.SYRIN IV PRN (16:15)
[2025-06-13] MEDS ORDERED: MIDAZOLAM HCL 2 MG/2 ML VIAL IV PUSH ONE (22:00)
[2025-06-13] MEDS ORDERED: fentaNYL CITRATE 50 MCG/ML AMPUL IV PUSH ONE (22:00)
[2025-06-13 22:07] VITALS: BP 111/74
[2025-06-14 01:58] VITALS: BP 96/62; O2SAT 100
[2025-06-14 02:21] VITALS: BP 98/58
[2025-06-14 05:22] VITALS: BP 95/53
[2025-06-14 05:39] VITALS: BP 100/64
[2025-06-14 09:05] VITALS: BP 109/72; O2SAT 100
[2025-06-14 21:13] VITALS: BP 100/63; O2SAT 96
[2025-06-15] MEDS ORDERED: MORPHINE SULFATE 4 MG/ML CARTRIDGE IV SCH (01:00)
[2025-06-15 02:03] VITALS: BP 126/73; O2SAT 96
[2025-06-15] MEDS ORDERED: LACTULOSE 20 G/30 ML BLIST.PACK PO SCH (09:00)
[2025-06-15 09:40] VITALS: BP 98/65; O2SAT 99
[2025-06-15 10:30] VITALS: BP 115/79
[2025-06-15 13:25] VITALS: BP 116/79
[2025-06-15 18:04] VITALS: BP 96/59
[2025-06-16 03:32] VITALS: BP 98/58; O2SAT 96
[2025-06-16 08:26] VITALS: BP 90/52; O2SAT 98
[2025-06-16] MEDS ORDERED: LACTULOSE 20 G/30 ML BLIST.PACK PO SCH (13:00)
[2025-06-16] MEDS ORDERED: fentaNYL 50 MCG PATCH.TD72 TD SCH (13:15)
[2025-06-16 18:52] VITALS: BP 122/78
[2025-06-17 04:31] VITALS: BP 97/64; O2SAT 98
[2025-06-17 08:59] VITALS: BP 96/60; O2SAT 99
[2025-06-17] MEDS ORDERED: MORPHINE SULFATE 4 MG/ML CARTRIDGE IV PRN (15:15)
[2025-06-17 18:12] VITALS: BP 101/62
[2025-06-18 02:52] VITALS: BP 102/70; O2SAT 97
[2025-06-18 09:13] VITALS: BP 110/65; O2SAT 99
[2025-06-18] MEDS ORDERED: PANTOPRAZOLE SODIUM 40 MG/VIAL VIAL IV SCH (10:15)
== END 2025-06-18 12:45 | disposition home or self-care (01) | DRG 948 ==
LOC: ER 10:41 → SEC-K 19:21 → MEDJ 06-13 10:15 → SEC-K 06-13 12:01 → MEDJ 06-13 16:51
PROVIDERS: General Practice; ADMIT Internal Medicine; ATTEND Internal Medicine
PROC: 0W9G3ZZ Drainage of Peritoneal Cavity, Percutaneous Approach (ICD-10-PCS; principal; 2025-06-13)
DX: R18.8 Other ascites (principal); C25.9 Malignant neoplasm of pancreas, unspecified; C78.7 Secondary malignant neoplasm of liver and intrahepatic bile duct